=== PATIENT | female | born 1995 | race Caucasian/White ===

== ENCOUNTER 2019-08-04 11:11 | Day surgery (SDC) | payer MEDICAID, SELFPAY ==
[~2019-08-04] VITALS: Ht 154.9 cm; Wt 69.9 kg
[2019-08-04 12:00] LABS: BASOPHILS # (AUTO) 0.1 K/uL (0.00-0.22); BASOPHILS % (AUTO) 0.4 % (0.0-2.0); EOSINOPHILS # (AUTO) 0.1 K/uL (0-0.4); EOSINOPHILS % (AUTO) 0.8 % (0.0-4.0); HEMATOCRIT 39.9 % (36-48); HEMOGLOBIN 13.3 g/dL (12.0-16.0); LYMPHOCYTES # (AUTO) 2.7 K/uL (2.5-16.5); MEAN CORPUSCULAR HEMOGLOBIN 31 pg (27-31); MEAN CORPUSCULAR HGB CONC 33 g/dL (33-37); MEAN CORPUSCULAR VOLUME 91.5 fL (80-94); MONOCYTES # (AUTO) 0.7 K/uL (0.8-1.0); MONOCYTES % (AUTO) 5.8 % (1.7-9.3); NEUTROPHILS # (AUTO) 8.3 K/uL (1.8-7.7); PLATELET COUNT (AUTO) 298 K/uL (140-450); RED BLOOD CELL COUNT(AUTO) 4.36 MIL/uL (4.20-5.40); RED CELL DISTRIBUTION WIDTH 12.8 % (11.6-13.7); WHITE BLOOD COUNT (AUTO) 11.8 K/uL (4.8-10.8)
[2019-08-04 12:26] LABS: ALBUMIN 3.8 g/dL (3.4-5.0); ANION GAP 10.9 (8-16); CARBON DIOXIDE 26.3 mmol/L (21-32); CREATININE 0.9 mg/dL (0.6-1.3); POTASSIUM 4.2 mmol/L (3.5-5.1); TOTAL BILIRUBIN 0.5 mg/dL (0.0-1.0)
[2019-08-04] MEDS ORDERED: GLYCOPYRROLATE 0.2 MG/ML VIAL ONE (13:52)
[2019-08-04] MEDS ORDERED: ROCURONIUM 50 MG/5 ML VIAL IV ONE (13:52)
[2019-08-04] MEDS ORDERED: DEXAMETHASONE 4 MG/ML VIAL ONE (13:52)
[2019-08-04] MEDS ORDERED: ONDANSETRON 4 MG/2 ML VIAL ONE (13:52)
[2019-08-04] MEDS ORDERED: PROPOFOL 200 MG/20 ML VIAL IV ONE (13:52)
[2019-08-04] MEDS ORDERED: fentaNYL 0.05 MG/ML VIAL ONE (13:52)
[2019-08-04] MEDS ORDERED: NEOSTIGMINE 1:1000 10 MG/10 ML VIAL ONE (13:52)
[2019-08-04] MEDS ORDERED: SEVOFLURANE 250 ML BTL INH ONE (13:52)
[2019-08-04] MEDS ORDERED: BUPIVACAINE-MPF 0.5% 30 ML VIAL INJ ONE (14:08)
[2019-08-04] MEDS ORDERED: LACTATED RINGERS 1,000 ML IV SCH (15:10)
[2019-08-04] MEDS ORDERED: ONDANSETRON 4 MG/2 ML VIAL IVP PRN (15:10)
[2019-08-04] MEDS: HYDROmorphone PFS 2 MG/ML SYR ONE ×2 (15:13→15:23)
[2019-08-04] MEDS ORDERED: HYDROmorphone 1 MG/ML AMP ONE (17:11)
[2019-08-04] MEDS: HYDROmorphone 1 MG/ML AMP IVP PRN ×2 (17:15→17:25)
== END 2019-08-04 18:40 | disposition home or self-care (01) ==
LOC: MMU 11:11 → MDS 11:11
PROVIDERS: ATTEND Obstetrics & Gynecology
DX: N83.202 Unspecified ovarian cyst, left side (principal); Z90.49 Acquired absence of other specified parts of digestive tract; Z88.8 Allergy status to other drugs, medicaments and biological substances
CPT/HCPCS: 36415; 58662; 80053; 84702; 85025; J1100; J1170; J2405; J2704; J2710; J3010; J3490; J7120